=== PATIENT | male | born 2000 | race Two or more races ===

== ENCOUNTER 2024-10-28 23:46 | Emergency (ER) | payer SELFPAY ==
[~2024-10-28] VITALS: Ht 172.7 cm; Wt 77.1 kg
[2024-10-29 00:10] VITALS: BP 126/80; TEMP 97.1; O2SAT 100
== END 2024-10-29 00:51 | disposition left against medical advice (07) ==
LOC: ER 23:48
DX: S60.511A Abrasion of right hand, initial encounter (principal); W22.09XA Striking against other stationary object, initial encounter; Y93.89 Activity, other specified; Y92.89 Other specified places as the place of occurrence of the external cause; Y99.8 Other external cause status
CPT/HCPCS: 73130-TC